=== PATIENT | female | born 1970 | race Two or more races ===

== ENCOUNTER 2018-06-22 05:21 | Day surgery (SDC) | payer OTHER | END 2018-06-22 09:55 | disposition home or self-care (01) | LOC: AMB-ENDOS 05:21 | DX: D13.1 Benign neoplasm of stomach (principal) ==

== ENCOUNTER 2018-12-18 07:18 | Outpatient (CLI) | payer OTHER | END 2018-12-18 07:21 | disposition home or self-care (01) | LOC: NUCLEAR 07:18 | DX: K31.84 Gastroparesis (principal) | CPT/HCPCS: 78264; A9541 ==